=== PATIENT | male | born 1965 | race Caucasian/White ===

== ENCOUNTER 2017-10-25 16:47 | Outpatient (CLI) | END 2017-10-25 16:48 | disposition home or self-care (01) | LOC: RHC-LAB 16:47 | PROVIDERS: ATTEND Nurse Practitioner Family | DX: R73.9 Hyperglycemia, unspecified (principal); R53.83 Other fatigue; Z00.00 Encounter for general adult medical examination without abnormal findings; Z12.5 Encounter for screening for malignant neoplasm of prostate | CPT/HCPCS: 36415; 80053; 80061; 82306; 82607; 83036; 84443; 85025 ==